=== PATIENT | male | born 1955 | race Two or more races ===

== ENCOUNTER 2020-01-21 08:00 | Inpatient (IN) | payer OTHER ==
[~2020-01-21] VITALS: Ht 167.6 cm; Wt 70.8 kg
[2020-01-21] MEDS ORDERED: SINGULAIR10 MG PO (13:56)
[2020-01-21] MEDS ORDERED: SIMVASTA PO (13:56)
[2020-01-21] MEDS ORDERED: TRENTAL PO (13:57)
[2020-01-21] MEDS ORDERED: HYDROCHLOROTH12.5 MG PO (13:58)
[2020-01-27] MEDS ORDERED: ZOCOR40 MG PO (09:06)
[2020-01-27] MEDS ORDERED: ZESTRIL20 MG PO (09:07)
[2020-01-27] MEDS ORDERED: PENTOXIFYLLINE400 MG PO (09:07)
[2020-01-27] MEDS ORDERED: SIMVASTATIN20 MG PO (09:08)
[2020-01-29] MEDS ORDERED: ELIQUIS2.5 MG PO (16:43)
[2020-01-29] MEDS ORDERED: DUI500 PO (16:43)
[2020-01-29] MEDS ORDERED: PERCOCET 5-3251 EACH PO (16:43)
== END 2020-01-29 19:12 | DRG 470 ==
LOC: SURH 01-27 04:27 → O/R 01-27 04:27 → SURH 01-27 10:12
PROVIDERS: ADMIT Orthopaedic Surgery; ATTEND Orthopaedic Surgery
PROC: 0MNP0ZZ Release Left Knee Bursa and Ligament, Open Approach (ICD-10-PCS; 2020-01-27)
PROC: 3E0F7GC Introduction of Other Therapeutic Substance into Respiratory Tract, Via Natural or Artificial Opening (ICD-10-PCS; 2020-01-27)
PROC: 0SRD0JA Replacement of Left Knee Joint with Synthetic Substitute, Uncemented, Open Approach (ICD-10-PCS; principal; 2020-01-27 07:00)
DX: M17.12 Unilateral primary osteoarthritis, left knee (principal); D62 Acute posthemorrhagic anemia; M22.12 Recurrent subluxation of patella, left knee; I11.9 Hypertensive heart disease without heart failure; E78.00 Pure hypercholesterolemia, unspecified; R73.01 Impaired fasting glucose; Z96.652 Presence of left artificial knee joint; F10.10 Alcohol abuse, uncomplicated; J45.20 Mild intermittent asthma, uncomplicated